=== PATIENT | female | born 1985 | race Caucasian/White ===

== ENCOUNTER 2024-05-21 08:10 | Emergency (ER) | payer BC, SELFPAY ==
[2024-05-21] MEDS ORDERED: Ibuprofen 200 MG TAB ONE ×2 (08:30→08:35)
[2024-05-21] MEDS ORDERED: Acetaminophen 500 MG TAB ONE (08:31)
[2024-05-21 09:46] LABS: Influenza A by NAA Not Detected (NotDetected); Influenza B by NAA Not Detected (NotDetected); SARS-CoV-2 NAA Rapid Test DETECTED (NotDetected)
== END 2024-05-21 09:12 | disposition home or self-care (01) ==
LOC: CSHERS 08:10
DX: B34.9 Viral infection, unspecified (principal)
CPT/HCPCS: 71045; 93005